=== PATIENT | male | born 1975 | race Caucasian/White ===

== ENCOUNTER → 2016-07-27 | Outpatient (CLI) | payer MEDICAID | LOC: NWCC 08:58 | PROVIDERS: ATTEND Internal Medicine | DX: L59.8 Other specified disorders of the skin and subcutaneous tissue related to radiation (principal); C09.9 Malignant neoplasm of tonsil, unspecified | CPT/HCPCS: 99183 ==

== ENCOUNTER → 2016-07-28 | Outpatient (CLI) | payer MEDICAID | LOC: NWCC 09:18 | PROVIDERS: ATTEND Internal Medicine | DX: L59.8 Other specified disorders of the skin and subcutaneous tissue related to radiation (principal); C09.9 Malignant neoplasm of tonsil, unspecified; K13.5 Oral submucous fibrosis | CPT/HCPCS: G0277; G0463; 99183 ==

== ENCOUNTER → 2016-08-04 | Outpatient (CLI) | payer MEDICAID | LOC: NWCC 09:18 | PROVIDERS: ATTEND Internal Medicine | DX: L59.8 Other specified disorders of the skin and subcutaneous tissue related to radiation (principal); C09.9 Malignant neoplasm of tonsil, unspecified | CPT/HCPCS: 99183 ==

== ENCOUNTER → 2016-08-05 | Outpatient (CLI) | payer MEDICAID | LOC: NWCC 09:25 | PROVIDERS: ATTEND Internal Medicine | DX: L59.8 Other specified disorders of the skin and subcutaneous tissue related to radiation (principal); C09.9 Malignant neoplasm of tonsil, unspecified; K13.5 Oral submucous fibrosis | CPT/HCPCS: G0277; G0463; 99183 ==

== ENCOUNTER → 2016-08-08 | Outpatient (CLI) | payer MEDICAID | LOC: NWCC 09:11 | PROVIDERS: ATTEND Internal Medicine | DX: L59.8 Other specified disorders of the skin and subcutaneous tissue related to radiation (principal); C09.9 Malignant neoplasm of tonsil, unspecified | CPT/HCPCS: 99183 ==

== ENCOUNTER → 2016-08-09 | Outpatient (CLI) | payer MEDICAID | LOC: NWCC 09:13 | PROVIDERS: ATTEND Surgery | DX: L59.8 Other specified disorders of the skin and subcutaneous tissue related to radiation (principal); C09.9 Malignant neoplasm of tonsil, unspecified | CPT/HCPCS: 99183 ==

== ENCOUNTER → 2016-08-10 | Outpatient (CLI) | payer MEDICAID | LOC: NWCC 09:06 | PROVIDERS: ATTEND Internal Medicine | DX: L59.8 Other specified disorders of the skin and subcutaneous tissue related to radiation (principal); C00.9 Malignant neoplasm of lip, unspecified | CPT/HCPCS: 99183 ==

== ENCOUNTER → 2016-08-11 | Outpatient (CLI) | payer MEDICAID | LOC: NWCC 09:05 | PROVIDERS: ATTEND Internal Medicine | DX: L59.8 Other specified disorders of the skin and subcutaneous tissue related to radiation (principal); C09.9 Malignant neoplasm of tonsil, unspecified; K13.5 Oral submucous fibrosis; Z87.898 Personal history of other specified conditions; L53.9 Erythematous condition, unspecified | CPT/HCPCS: G0277; G0463; 99183 ==

== ENCOUNTER → 2016-08-12 | Outpatient (CLI) | payer MEDICAID | LOC: NWCC 08:53 | PROVIDERS: ATTEND Internal Medicine | DX: L59.8 Other specified disorders of the skin and subcutaneous tissue related to radiation (principal); C09.9 Malignant neoplasm of tonsil, unspecified | CPT/HCPCS: 99183 ==

== ENCOUNTER → 2016-08-15 | Outpatient (CLI) | payer MEDICAID | LOC: NWCC 09:10 | PROVIDERS: ATTEND Internal Medicine | DX: L59.8 Other specified disorders of the skin and subcutaneous tissue related to radiation (principal); C09.9 Malignant neoplasm of tonsil, unspecified | CPT/HCPCS: 99183 ==

== ENCOUNTER → 2016-08-18 | Outpatient (CLI) | payer MEDICAID | LOC: NWCC 09:54 | PROVIDERS: ATTEND Internal Medicine | DX: Z53.9 Procedure and treatment not carried out, unspecified reason (principal) ==

== ENCOUNTER → 2016-08-22 | Outpatient (CLI) | payer MEDICAID | LOC: NWCC 09:46 | PROVIDERS: ATTEND Internal Medicine | DX: L59.8 Other specified disorders of the skin and subcutaneous tissue related to radiation (principal); C09.9 Malignant neoplasm of tonsil, unspecified; K13.5 Oral submucous fibrosis; L53.9 Erythematous condition, unspecified | CPT/HCPCS: G0277; G0463; 99183 ==

== ENCOUNTER → 2016-08-23 | Outpatient (CLI) | payer MEDICAID | LOC: NWCC 09:43 | PROVIDERS: ATTEND Surgery | DX: L59.8 Other specified disorders of the skin and subcutaneous tissue related to radiation (principal); C09.9 Malignant neoplasm of tonsil, unspecified | CPT/HCPCS: 99183 ==

== ENCOUNTER → 2016-08-24 | Outpatient (CLI) | payer MEDICAID | LOC: NWCC 09:48 | PROVIDERS: ATTEND Internal Medicine | DX: L59.8 Other specified disorders of the skin and subcutaneous tissue related to radiation (principal); C09.9 Malignant neoplasm of tonsil, unspecified | CPT/HCPCS: 99183 ==

== ENCOUNTER → 2016-08-25 | Outpatient (CLI) | payer MEDICAID | LOC: NWCC 09:31 | PROVIDERS: ATTEND Internal Medicine | DX: L59.8 Other specified disorders of the skin and subcutaneous tissue related to radiation (principal); C09.9 Malignant neoplasm of tonsil, unspecified | CPT/HCPCS: 82948; G0277; 99183 ==

== ENCOUNTER → 2016-08-26 | Outpatient (CLI) | payer MEDICAID | LOC: NWCC 09:16 | PROVIDERS: ATTEND Internal Medicine | DX: L59.8 Other specified disorders of the skin and subcutaneous tissue related to radiation (principal); C09.9 Malignant neoplasm of tonsil, unspecified | CPT/HCPCS: 99183 ==

== ENCOUNTER → 2016-08-31 | Outpatient (CLI) | payer MEDICAID | LOC: NWCC 10:04 | PROVIDERS: ATTEND Internal Medicine | DX: L59.8 Other specified disorders of the skin and subcutaneous tissue related to radiation (principal); C09.9 Malignant neoplasm of tonsil, unspecified | CPT/HCPCS: 99183 ==

== ENCOUNTER → 2016-09-01 | Outpatient (CLI) | payer MEDICAID | LOC: NWCC 10:00 | PROVIDERS: ATTEND Internal Medicine | DX: L59.8 Other specified disorders of the skin and subcutaneous tissue related to radiation (principal); C09.9 Malignant neoplasm of tonsil, unspecified; K13.5 Oral submucous fibrosis; L53.9 Erythematous condition, unspecified | CPT/HCPCS: G0277; G0463; 99183 ==

== ENCOUNTER → 2016-09-02 | Outpatient (CLI) | payer MEDICAID | LOC: NWCC 10:01 | PROVIDERS: ATTEND Internal Medicine | DX: L59.8 Other specified disorders of the skin and subcutaneous tissue related to radiation (principal); C00.9 Malignant neoplasm of lip, unspecified | CPT/HCPCS: 99183 ==

== ENCOUNTER → 2016-09-05 | Outpatient (CLI) | payer MEDICAID | LOC: NWCC 09:59 | PROVIDERS: ATTEND Internal Medicine | DX: L59.8 Other specified disorders of the skin and subcutaneous tissue related to radiation (principal); C09.9 Malignant neoplasm of tonsil, unspecified | CPT/HCPCS: 99183 ==

== ENCOUNTER → 2016-09-06 | Outpatient (CLI) | payer MEDICAID | LOC: NWCC 10:09 | PROVIDERS: ATTEND Surgery | DX: L59.8 Other specified disorders of the skin and subcutaneous tissue related to radiation (principal); C09.9 Malignant neoplasm of tonsil, unspecified | CPT/HCPCS: 99183 ==

== ENCOUNTER → 2016-09-07 | Outpatient (CLI) | payer MEDICAID | LOC: NWCC 09:49 | PROVIDERS: ATTEND Internal Medicine | DX: L59.8 Other specified disorders of the skin and subcutaneous tissue related to radiation (principal); C09.9 Malignant neoplasm of tonsil, unspecified; K13.5 Oral submucous fibrosis; L53.9 Erythematous condition, unspecified | CPT/HCPCS: G0277; G0463; 99183 ==

== ENCOUNTER → 2016-09-08 | Outpatient (CLI) | payer MEDICAID | LOC: NWCC 10:03 | PROVIDERS: ATTEND Internal Medicine | DX: L59.8 Other specified disorders of the skin and subcutaneous tissue related to radiation (principal); C09.9 Malignant neoplasm of tonsil, unspecified | CPT/HCPCS: 99183 ==

== ENCOUNTER → 2016-09-14 | Outpatient (CLI) | payer MEDICAID | LOC: NWCC 09:56 | PROVIDERS: ATTEND Internal Medicine | DX: L59.8 Other specified disorders of the skin and subcutaneous tissue related to radiation (principal); C09.9 Malignant neoplasm of tonsil, unspecified; K13.5 Oral submucous fibrosis | CPT/HCPCS: G0277; G0463; 99183 ==

== ENCOUNTER → 2016-09-15 | Outpatient (CLI) | payer MEDICAID | LOC: NWCC 09:53 | PROVIDERS: ATTEND Internal Medicine | DX: L59.8 Other specified disorders of the skin and subcutaneous tissue related to radiation (principal); C09.9 Malignant neoplasm of tonsil, unspecified | CPT/HCPCS: 99183 ==

== ENCOUNTER → 2016-09-16 | Outpatient (CLI) | payer MEDICAID | LOC: NWCC 09:26 | PROVIDERS: ATTEND Internal Medicine | DX: L59.8 Other specified disorders of the skin and subcutaneous tissue related to radiation (principal); C09.9 Malignant neoplasm of tonsil, unspecified | CPT/HCPCS: 99183 ==

== ENCOUNTER → 2016-09-19 | Outpatient (CLI) | payer MEDICAID | LOC: NWCC 10:18 | PROVIDERS: ATTEND Internal Medicine | DX: L59.8 Other specified disorders of the skin and subcutaneous tissue related to radiation (principal); C09.9 Malignant neoplasm of tonsil, unspecified | CPT/HCPCS: 99183 ==

== ENCOUNTER → 2016-09-22 | Outpatient (CLI) | payer MEDICAID | LOC: NWCC 09:30 | PROVIDERS: ATTEND Internal Medicine | DX: L59.8 Other specified disorders of the skin and subcutaneous tissue related to radiation (principal); K13.5 Oral submucous fibrosis; Z92.3 Personal history of irradiation ==